=== PATIENT | male | born 1955 | race African-American/Black ===

== ENCOUNTER 2017-10-18 23:06 | Inpatient (IN) | payer OTHER ==
[~2017-10-18] VITALS: Ht 167.6 cm; Wt 56.9 kg
[2017-10-19 00:18] LABS: HEMOGLOBIN 15.3 G/DL (12.5-16.6); MCH 30.4 PG (29.0-34.0); MCHC 35.6 G/DL (30.0-36.0); MCV 85.3 FL (86-99); RBC DIS.WIDTH-CV 12.9 % (11.8-14.6); RBC DIS.WIDTH-SD 39.9 % (39-53); RED BLOOD COUNT 5.04 M/uL (4.00-5.50); WHITE BLOOD COUNT 5.5 K/uL (4.1-10.2)
[2017-10-19 00:33] LABS: ALBUMIN 4.6 g/dL (3.2-4.8); CHLORIDE 93 mEq/L (99-109); POTASSIUM 4.9 mEq/L (3.7-5.4); SODIUM 130 mEq/L (136-147)
[2017-10-19 00:35] LABS: TOTAL PROTEIN 8.3 g/dL (6.4-8.3)
[2017-10-19 00:36] LABS: GLUCOSE 577 mg/dL (70-99)
[2017-10-19 00:37] LABS: TOTAL BILIRUBIN 1.1 mg/dL (0.0-1.0)
[2017-10-19 00:39] LABS: ALKALINE PHOSPHATASE 114 IU/L (3-129); CREATININE 1.2 mg/dL (0.6-1.3)
[2017-10-19 00:40] LABS: UREA NITROGEN (BUN) 12 mg/dL (9-23)
[2017-10-19 00:41] LABS: AST (GOT) 59 IU/L (2-34)
[2017-10-19 00:42] LABS: ALT (GPT) 86 IU/L (3-49); LIPASE 371 U/L (1.0-51.0)
[2017-10-19 00:48] LABS: GFR ESTIMATE (CALCULATED) > 59 mL/min/ (58.99-99999)
[2017-10-19 01:59] LABS: PLATELET CLUMPS 2+; PLATELET COUNT UNABLE TO REPORT K/uL (156-360)
[2017-10-19 02:00] LABS: HEMATOLOGY COMMENT 1 SN
[2017-10-19 02:27] LABS: COMMENTS - BLOOD GASES C+A+; DEVICE ROOM AIR; FI02 21 %; PCO2 28 mm Hg (35-45); PO2 91 mm Hg (80-100); SITE LR; pH 7.34 (7.35-7.45)
[2017-10-19 02:28] LABS: BASE EXCESS -9.2 mEq/L (-3 to +3); BICARBONATE 15.1 mEq/L (22-26); CARBOXY HGB 2.1 % (0-5); METHEMOGLOBIN 1.1 % (0-1.5)
[2017-10-19 03:30] LABS: CHLORIDE 101 mEq/L (99-109); POTASSIUM 4.2 mEq/L (3.7-5.4); SODIUM 134 mEq/L (136-147)
[2017-10-19 03:32] LABS: GLUCOSE 370 mg/dL (70-99)
[2017-10-19 03:36] LABS: CREATININE 0.9 mg/dL (0.6-1.3); GFR ESTIMATE (CALCULATED) > 59 mL/min/ (58.99-99999)
[2017-10-19 03:37] LABS: UREA NITROGEN (BUN) 10 mg/dL (9-23)
[2017-10-19 03:51] LABS: APPEARANCE CLEAR ((CLEAR)); BILIRUBIN NEGATIVE; BLOOD NEGATIVE; COLOR YELLOW ((YELLOW)); GLUCOSE (STRIP) >=500; KETONES 80; LEUKOCYTES NEGATIVE; NITRITE NEGATIVE; PROTEIN (STRIP) NEGATIVE; UCUL ADDED? NO; UROBILINOGEN 0.2 MG/DL (0.2-1.0)
[2017-10-19 06:14] LABS: CHLORIDE 108 mEq/L (99-109); POTASSIUM 3.7 mEq/L (3.7-5.4); SODIUM 139 mEq/L (136-147)
[2017-10-19 06:17] LABS: GLUCOSE 112 mg/dL (70-99)
[2017-10-19 06:19] LABS: CREATININE 0.8 mg/dL (0.6-1.3); GFR ESTIMATE (CALCULATED) > 59 mL/min/ (58.99-99999)
[2017-10-19 06:20] LABS: UREA NITROGEN (BUN) 9 mg/dL (9-23)
[2017-10-19] MEDS ORDERED: VITAMIN D31000 UNIT PO (08:04)
[2017-10-19] MEDS ORDERED: LEVEMIR100 UNIT/2 SC (08:05)
[2017-10-19] MEDS ORDERED: NEURONTIN300 MG PO (08:05)
[2017-10-19] MEDS ORDERED: AMBIEN10 MG PO ×2 (08:06→08:09)
[2017-10-19] MEDS ORDERED: HUMALOG100 UNIT/1 SC (08:06)
[2017-10-19] MEDS ORDERED: PRINZIDE 20-121 EACH PO (08:09)
[2017-10-19 08:32] LABS: MAGNESIUM 1.8 mg/dL (1.3-2.7)
[2017-10-19 08:39] LABS: HEMATOCRIT 33.2 % (38.0-50.0); HEMOGLOBIN 12.1 G/DL (12.5-16.6); MCV 84.5 FL (86-99)
[2017-10-19 11:19] VITALS: BP 165/83
[2017-10-19 17:28] LABS: HEMATOCRIT 35.3 % (38.0-50.0); HEMOGLOBIN 12.3 G/DL (12.5-16.6); MCV 86.1 FL (86-99)
[2017-10-19 19:34] VITALS: BP 151/71
[2017-10-20] VITALS (7 sets, daily range): BP systolic 160–185; BP diastolic 60–89
[2017-10-20 01:01] LABS: HEMATOCRIT 36.6 % (38.0-50.0); HEMOGLOBIN 13.2 G/DL (12.5-16.6); MCV 84.9 FL (86-99)
[2017-10-20 06:24] LABS: HEMATOCRIT 31.1 % (38.0-50.0); MCH 30.1 PG (29.0-34.0); MCHC 35.4 G/DL (30.0-36.0); RBC DIS.WIDTH-CV 13.2 % (11.8-14.6); WHITE BLOOD COUNT 4.6 K/uL (4.1-10.2)
[2017-10-20 06:27] LABS: PLATELET COUNT 118 K/uL (156-360); RED BLOOD COUNT 3.66 M/uL (4.00-5.50)
[2017-10-20 06:38] LABS: CHLORIDE 106 MEQ/L (99-109); CREATININE 0.7 MG/DL (0.6-1.3); GFR ESTIMATE (CALCULATED) > 59 mL/min/ (58.99-99999); POTASSIUM 3.7 MEQ/L (3.7-5.4); SODIUM 134 MEQ/L (136-147); UREA NITROGEN (BUN) 8 mg/dL (9-23)
[2017-10-20 06:38] LABS: ALBUMIN 3.2 G/DL (3.2-4.8); ALKALINE PHOSPHATASE 64 IU/L (3-129); ALT (GPT) 60 IU/L (3-49); AST (GOT) 53 IU/L (2-34); CHLORIDE 106 MEQ/L (99-109); CREATININE 0.6 MG/DL (0.6-1.3); GFR ESTIMATE (CALCULATED) > 59 mL/min/ (58.99-99999); LIPASE 333 U/L (1.0-51.0); POTASSIUM 3.7 MEQ/L (3.7-5.4); SODIUM 134 MEQ/L (136-147); TOTAL BILIRUBIN 0.6 MG/DL (0.0-1.0); TOTAL PROTEIN 5.3 G/DL (6.4-8.3); UREA NITROGEN (BUN) 8 mg/dL (9-23)
[2017-10-20 06:41] LABS: GLUCOSE 286 mg/dL (70-99)
[2017-10-20 06:42] LABS: GLUCOSE 286 mg/dL (70-99)
[2017-10-20 13:31] LABS: HEMATOCRIT 32.2 % (38.0-50.0); HEMOGLOBIN 11.3 G/DL (12.5-16.6); MCV 84.3 FL (86-99)
[2017-10-20 20:41] LABS: HEMATOCRIT 30.5 % (38.0-50.0); HEMOGLOBIN 10.8 G/DL (12.5-16.6); MCV 83.3 FL (86-99)
[2017-10-21 03:06] VITALS: BP 167/68
[2017-10-21 06:22] LABS: HEMATOCRIT 29.9 % (38.0-50.0); HEMOGLOBIN 10.8 G/DL (12.5-16.6); MCV 83.3 FL (86-99)
[2017-10-21 06:57] LABS: ALBUMIN 3.1 G/DL (3.2-4.8); ALKALINE PHOSPHATASE 59 IU/L (3-129); ALT (GPT) 57 IU/L (3-49); AST (GOT) 39 IU/L (2-34); CHLORIDE 112 MEQ/L (99-109); CREATININE 0.6 MG/DL (0.6-1.3); GFR ESTIMATE (CALCULATED) > 59 mL/min/ (58.99-99999); GLUCOSE 160 mg/dL (70-99); TOTAL BILIRUBIN 0.6 MG/DL (0.0-1.0); TOTAL PROTEIN 5.2 G/DL (6.4-8.3); UREA NITROGEN (BUN) 6 mg/dL (9-23)
[2017-10-21 06:58] LABS: SODIUM 141 MEQ/L (136-147)
[2017-10-21 10:23] VITALS: BP 155/82
[2017-10-21 13:43] LABS: HEMATOCRIT 30.9 % (38.0-50.0); HEMOGLOBIN 10.8 G/DL (12.5-16.6)
[2017-10-21 21:15] LABS: HEMATOCRIT 32.5 % (38.0-50.0); HEMOGLOBIN 11.5 G/DL (12.5-16.6); MCV 83.5 FL (86-99)
[2017-10-21 23:52] VITALS: BP 128/72
[2017-10-22 07:23] LABS: HEMATOCRIT 29.9 % (38.0-50.0); HEMOGLOBIN 10.8 G/DL (12.5-16.6); MCH 30.2 PG (29.0-34.0); MCHC 36.1 G/DL (30.0-36.0); MCV 83.5 FL (86-99); PLATELET COUNT 122 K/uL (156-360); RBC DIS.WIDTH-CV 13.3 % (11.8-14.6); RBC DIS.WIDTH-SD 40.6 % (39-53); RED BLOOD COUNT 3.58 M/uL (4.00-5.50); WHITE BLOOD COUNT 4.9 K/uL (4.1-10.2)
[2017-10-22 07:45] LABS: CHLORIDE 108 MEQ/L (99-109); CREATININE 0.6 MG/DL (0.6-1.3); GFR ESTIMATE (CALCULATED) > 59 mL/min/ (58.99-99999); GLUCOSE 215 mg/dL (70-99); POTASSIUM 3.3 MEQ/L (3.7-5.4); SODIUM 140 MEQ/L (136-147); UREA NITROGEN (BUN) 5 mg/dL (9-23)
[2017-10-22 08:48] VITALS: BP 156/81
[2017-10-22 12:00] VITALS: BP 142/75
[2017-10-22 20:25] VITALS: BP 140/62
[2017-10-23 00:47] VITALS: BP 136/60
[2017-10-23 06:33] VITALS: BP 140/62
[2017-10-23 11:55] VITALS: BP 142/68
[2017-10-23 17:45] VITALS: BP 136/89
[2017-10-23 19:30] VITALS: BP 178/86
[2017-10-24] VITALS (7 sets, daily range): BP systolic 125–176; BP diastolic 71–84
[2017-10-25 04:25] VITALS: BP 172/83
[2017-10-25 08:26] VITALS: BP 152/76
[2017-10-25] MEDS ORDERED: SPIRIVA18 MCG IH (11:18)
[2017-10-25] MEDS ORDERED: AMLODIPINE BESYL5 MG PO (11:18)
[2017-10-25] MEDS ORDERED: AUGMENTIN875 MG PO (11:18)
[2017-10-25] MEDS ORDERED: PROAIR HFA8.5 GM IH (11:22)
[2017-10-25 11:44] VITALS: BP 156/77
== END 2017-10-25 16:00 | disposition home or self-care (01) | DRG 166 ==
LOC: EME 23:06 → EDOF 10-19 07:35 → 3EAST 10-19 07:35 → ENRESERV 10-19 07:44 → 3EAST 10-19 10:46 → ENRESERV 10-20 08:31 → 3EAST 10-20 09:41
PROVIDERS: Emergency Medicine; Internal Medicine; Internal Medicine Gastroenterology
DX: J18.9 Pneumonia, unspecified organism (principal); J85.0 Gangrene and necrosis of lung; J44.0 Chronic obstructive pulmonary disease with (acute) lower respiratory infection; R04.2 Hemoptysis; J44.1 Chronic obstructive pulmonary disease with (acute) exacerbation; E11.10 Type 2 diabetes mellitus with ketoacidosis without coma; K29.60 Other gastritis without bleeding; K21.0 Gastro-esophageal reflux disease with esophagitis; K44.9 Diaphragmatic hernia without obstruction or gangrene; I16.0 Hypertensive urgency; I10 Essential (primary) hypertension; R74.8 Abnormal levels of other serum enzymes; R74.0 Nonspecific elevation of levels of transaminase and lactic acid dehydrogenase [LDH]; E86.0 Dehydration; M48.00 Spinal stenosis, site unspecified; G89.29 Other chronic pain; R63.0 Anorexia; K92.1 Melena; F10.920 Alcohol use, unspecified with intoxication, uncomplicated; Z86.11 Personal history of tuberculosis; Z87.11 Personal history of peptic ulcer disease; Z85.46 Personal history of malignant neoplasm of prostate; F12.90 Cannabis use, unspecified, uncomplicated; Z87.891 Personal history of nicotine dependence; Z90.79 Acquired absence of other genital organ(s); Z79.4 Long term (current) use of insulin
CPT/HCPCS: 36600; 71046; 71260; 80048; 80048 91; 80053; 81003; 82803; 82948; 83690; 83735; 85014; 85018; 85027; 86850; 86900; 86901; 87070; 87102; 87116; 87205; 87206; 88108; 94640; 94640 76; 99202; 99281; 99285; C9113; J1815; J2250; J2543; J3010; J7030; J7050